=== PATIENT | female | born 2000 | race Caucasian/White ===

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

== ENCOUNTER → 2019-07-21 | Outpatient (REF) | payer OTHER ==
[2019-07-21 21:46] LABS: CHLAMYDIA DNA AMPLIFICATION NEGATIVE (NEGATIVE); GC DNA AMPLIFICATION NEGATIVE (NEGATIVE)
== END ==
LOC: M SFHCLERA 14:12
PROVIDERS: ATTEND Physician Assistant
DX: N94.10 Unspecified dyspareunia (principal); N89.8 Other specified noninflammatory disorders of vagina
CPT/HCPCS: 81002; 81025; 87070; 87077; 87186; 87661; 96372; G0463; J0696

== ENCOUNTER → 2020-09-10 | Outpatient (REF) | payer BC ==
[2020-09-10 17:54] LABS: BASO % 0.5 % (0.0-1.0); EOS # 0.9 10^3/uL (0.0-0.5); EOS % 12.1 % (0.0-3.0); HEMATOCRIT 42.7 % (36.0-47.0); HEMOGLOBIN 13.6 g/dl (12.0-15.5); LYMPH # 2.6 10^3/uL (1.5-5.0); LYMPH % 33.9 % (24.0-44.0); MEAN CORPUSCULAR HEMOGLOBIN 30.6 pg (27.0-33.0); MEAN CORPUSCULAR HGB CONC 31.9 g/dl (32.0-36.5); MONO # 0.5 10^3/uL (0.0-0.8); MONO % 6.7 % (0.0-5.0); NEUTROPHILS # 3.6 10^3/uL (1.5-8.5); NEUTROPHILS % 46.7 % (36.0-66.0); PLATELET COUNT, AUTOMATED 293 10^3/uL (150-450); RED BLOOD COUNT 4.45 10^6/uL (4.00-5.40); WHITE BLOOD COUNT 7.6 10^3/uL (4.0-10.0)
[2020-09-10 18:21] LABS: ALBUMIN 3.7 GM/DL (3.2-5.2); ALT/SGPT 27 U/L (12-78); BILIRUBIN,TOTAL 0.4 MG/DL (0.2-1.0); BLOOD UREA NITROGEN 9 MG/DL (7-18); CARBON DIOXIDE LEVEL 29 MEQ/L (21-32); CHLORIDE LEVEL 106 MEQ/L (98-107); CHOLESTEROL LEVEL 227 MG/DL (<200); CHOLESTEROL RISK RATIO 3.546 (<5); CREATININE FOR GFR 0.74 MG/DL (0.55-1.30); FREE T4 0.99 NG/DL (0.76-1.46); GLOMERULAR FILTRATION RATE > 60.0 (>60); GLUCOSE, FASTING 80 MG/DL (70-100); HDL CHOLESTEROL 64 MG/DL (>40); LDL CHOLESTEROL 134 MG/DL (<100); NON-HDL-C 163 MG/DL; POTASSIUM SERUM 4.5 MEQ/L (3.5-5.1); SODIUM LEVEL 139 MEQ/L (136-145); TRIGLYCERIDES LEVEL 143 MG/DL (<150)
== END ==
LOC: M SFHCPLAZ 14:27
PROVIDERS: ATTEND Nurse Practitioner Family
DX: Z13.228 Encounter for screening for other metabolic disorders (principal); Z13.220 Encounter for screening for lipoid disorders

== ENCOUNTER → 2020-10-09 | Outpatient (CLI) | payer BC ==
--- NOTE | 2020-10-09 14:31 | REPPI ---
INDICATION: R09.89 CHEST CONGESTION. COMPARISON: No comparison chest x-ray. TECHNIQUE: Three views presented... FINDINGS: The lungs are well inflated and free of infiltrate. The pleural angles are sharp. The heart size is normal. Pulmonary vasculature is not increased. No significant bony abnormality is seen. IMPRESSION: Negative chest x-ray. <Electronically signed by Dallas Gary > 10/09/20 [id number]
== END ==
LOC: M PLAIMG 11:54
PROVIDERS: ATTEND Nurse Practitioner Family
DX: R09.89 Other specified symptoms and signs involving the circulatory and respiratory systems (principal)

== ENCOUNTER → 2020-10-11 | Outpatient (REF) | payer BC | LOC: M SFHCWAGY 13:25 | PROVIDERS: ATTEND Nurse Practitioner Family | DX: Z11.3 Encounter for screening for infections with a predominantly sexual mode of transmission (principal) | CPT/HCPCS: 87624; 87661; G0123 ==

== ENCOUNTER → 2020-10-16 | Outpatient (CLI) | payer BC | LOC: M PLALAB 12:12 | PROVIDERS: ATTEND Nurse Practitioner Family | DX: J30.2 Other seasonal allergic rhinitis (principal); H10.45 Other chronic allergic conjunctivitis ==

== ENCOUNTER 2020-11-01 02:12 | Emergency (ER) | payer BC ==
[~2020-11-01] VITALS: Ht 165.1 cm; Wt 79.8 kg
[2020-11-01] MEDS ORDERED: CETI-24 PO (02:16)
--- OUTSIDE RECORDS SUMMARY | 2020-11-01 02:18 | CCD ---
Author Author [facility] Organization [facility] Address Unknown Phone Unavailable Care Team Providers Care Med Peds Name Role Phone Vania Arnold Unavailable PROBLEMS Type Condition ICD9-CM Code NWN80-VG Code Onset Dates Condition S tatus SNOMED Code Notes Problem Dyspareunia in female N94.10 Active 92164178 Problem Allergic rhinitis J30.9 Active 17545957 Problem Other chronic pain G89.29 Active 11441989 ALLERGIES No Known Allergies ENCOUNTERS from 1998 to 2020-09-14 Encounter Location Date Provider Diagnosis [address] [address] Sep, Vania Arnold Allergic rhinitis J30.9 ; Uses oral cont raceptives Z30.41 ; Former smoker Z87.891 ; Cervical cancer screening Z12.4 ; Screening for metabolic disorder Z13.228 ; Screening for lipid disorders Z13.220 and Encounter to establish care Z76.89 IMMUNIZATIONS Vaccine Route Administration Date Status Influenza (6mo & up) Fluzone Unknown May 04, 2017 Oth ers SOCIAL HISTORY Tobacco Use: Social History Observation Description Date Details (start date - stop date) Never Smoker Sex Assigned At : Social History Observation Description Sex Assigned At Unknown Education: Question Answer Notes Level of Education: Not Finished College Language: Question Answer Notes Languages spoken: Chadian Hoahaoism: Question Answer Notes Hoahaoism 08 Jewish Sexual Hx: Question Answer Notes Had sex in the last 12 months (vaginal, oral, or anal)? No LMP: 08/2020 Alcohol Screening: Question Answer Notes Did you have a drink containing alcohol in the past year? Ye s Points 1 Interpretation Negative How many drinks did you have on a typica l day when you were drinking in the past year? 1 or 2 (0 points) How often did you have a drink containing alcohol in t he past year? Monthly or less (1 point) Tobacco Use: Question Answer Notes Are you a: current every day smoker 1/2 ppd Are you a: never smoker REASON FOR REFERRAL No Information VITAL SIGNS Weight 170 lbs Sep, Height 65 in Sep, BMI 28.29 kg/m2 Sep, Heart Rate 88 /min Sep, Respiratory Rate 18 /min Sep, Temperature 98.4 degrees Fahrenheit Sep, Oximetry 98 Sep, Blood pressure systolic 124 mm Hg Sep, Blood pressure diastolic 78 mm Hg Sep, MEDICATIONS Medication SIG (Take, Route, Frequency, Duration) Notes Start Da te End Date Status Larissia 0.1-20 MG-MCG 1 tablet Orally Once a day for 28 day(s) Active Yumi-D 24 Hour Active PROCEDURES No Information RESULTS REASON FOR VISIT to establish MEDICAL (GENERAL) HISTORY Type Description Date Medical History seasonal allergies Surgical History 3 tympanic surgeries on left ear Goals Section No Information Health Concerns No Information MEDICAL EQUIPMENT No Information MENTAL STATUS No Information FUNCTIONAL STATUS No Information ASSESSMENTS Encounter Date Diagnosis Assessment Notes Treatment Notes Treatm ent Clinical Notes Sep, Allergic rhinitis (ICD-10 - J30.9) 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 Sep, Uses oral contraceptives (ICD-10 - Z30.41) establishing with [facility] will defer care Sep, Former smoker (ICD-10 - Z87.891) advised to staff off of it Sep, Cervical cancer screening (ICD-10 - Z12.4) had no prior Sep, Screening for metabolic disorder (ICD-10 - Z13.2 28) screening Sep, Screening for lipid disorders (ICD-10 - Z13.220) screening Sep, Encounter to establish care (ICD-10 - Z76.89) establishing care PLAN OF TREATMENT Medication Medication Name Sig Start Date Stop Date Larissia 0.1-20 MG-MCG 1 tablet Orally Once a day for 28 day(s) Yumi-D 24 Hour Treatment Notes Assessment Notes Clinical Notes Allergic rhinitis referral to allergis t Uses oral contraceptives establishing [facility] care Former smoker advised to staff off of it Cervical cancer screening had no prior Screening for metabolic disorder screeni ng Screening for lipid disorders screening Encounter to establish care establishing care Next Appt Details 1 Year Reason: Provider Name:Vani Mena, 2020-10-11 10:00:00 AM, [facility] [place], [address], Provider Name:Vania Arnold, 09-12 11:00:00 AM, [address] [place], [address], Insurance Providers Payer Name Payer Address Payer Phone Insured Name Patient Relati onship to Insured Coverage Start Date Coverage End Date BCBS OF [employer] [phone] [facility] [id number] YANNA MOURA self
--- OUTSIDE RECORDS SUMMARY | 2020-11-01 02:18 | CCD ---
Author Author [facility] Organization [facility] Address Unknown Phone Unavailable Care Team Providers Care Table Games Manager Name Role Phone Vania Arnold Unavailable PROBLEMS Type Condition ICD9-CM Code SQX22-PS Code Onset Dates Condition S tatus W/U Status Risk SNOMED Code Notes Problem Allergic rhinitis J30.9 Active confirmed 61 110229 Problem Sinusitis J32.9 Active confirmed 83219433 Problem Other chronic pain G89.29 Active confirmed 8 8917525 Problem Dyspareunia in female N94.10 Active confirmed 13741130 ALLERGIES No Known Allergies ENCOUNTERS from 1998 to 2020-10-14 Encounter Location Date Provider Diagnosis [address] [address] Oct, Vania Arnold Chest congestion R09.89 and Sinusitis J3 2.9 IMMUNIZATIONS Vaccine Route Administration Date Status Influenza (6mo & up) Fluzone Unknown May 04, 2017 Oth ers SOCIAL HISTORY Tobacco Use: Social History Observation Description Date Details (start date - stop date) Never Smoker Sex Assigned At : Social History Observation Description Sex Assigned At Unknown Education: Question Answer Notes Level of Education: Not Finished College Language: Question Answer Notes Languages spoken: French Pentecostal: Question Answer Notes Pentecostal 08 [employer]ist Sexual Hx: Question Answer Notes Had sex [...] Use: Question Answer Notes Are you a: never smoker REASON FOR REFERRAL No Information VITAL SIGNS Weight 165 lbs Oct, Height 65 in Oct, BMI 27.45 kg/m2 Oct, Heart Rate 94 /min Oct, Respiratory Rate 16 /min Oct, Temperature 98.8 degrees Fahrenheit Oct, Oximetry 99 Oct, Blood pressure systolic 132 mm Hg Oct, Blood pressure diastolic 74 mm Hg Oct, MEDICATIONS Medication SIG (Take, Route, Frequency, Duration) Notes Start Da te End Date Status Yumi-D 24 Hour Not-Hung ing Flonase Allergy Relief 50 MCG/ACT 1 spray in each nostril Nasall y Once a day Active Zyrtec Allergy 10 MG 1 tablet Orally Once a day for 30 day(s) Active Larissia 0.1-20 MG-MCG 1 tablet Orally Once a day for 28 day(s) Not-Taking Amoxicillin-Pot Clavulanate 875-125 MG 1 tablet Orally every 12 hrs for 10 day(s) Oct, Not-Taking KEM 3-0.02 MG 1 tablet Orally Once a day for 28 day(s) Oct, Active PROCEDURES No Information RESULTS No Results REASON FOR VISIT sinus MEDICAL (GENERAL) HISTORY Type Description Date Medical History seasonal allergies Medical History anxiety Surgical History 3 tympanic surgeries on left ear Goals Section No Information Health Concerns No Information MEDICAL EQUIPMENT No Information MENTAL STATUS No Information FUNCTIONAL STATUS No Information ASSESSMENTS Encounter Date Diagnosis Assessment Notes Treatment Notes Treatm ent Clinical Notes Oct, Chest congestion (ICD-10 - R09.89) obtain chest x-ray rapid Covid test to risk stratify. Oct, Sinusitis (ICD-10 - J32.9) PLAN OF TREATMENT Medication Medication Name Sig Start Date Stop Date KEM 3-0.02 MG 1 tablet Orally Once a day for 28 day(s) Oct, Treatment Notes Assessment Notes Clinical Notes Chest congestion obtain chest x-rayra pid Covid test to risk stratify. Treatment Notes Test Name Order Date Chest X-ray PA and lateral 2020-10-09 Future Test Test Name Order Date SABINA COVID AG (Point of Care) [id number] Next Appt Details Reason: Provider Name:Sarai Saba, 2020-10-25 03:00:00 PM, [address] [place], [address], Provider Name:Vania Clayton, 09-12 11:00:00 AM, [address] [place], [address], Insurance Providers Payer Name Payer Address Payer Phone Insured Name Patient Relati onship to Insured Coverage Start Date Coverage End Date BCBS OF [facility] [phone] [facility] [id number] YANNA PEDRAZA self
--- OUTSIDE RECORDS SUMMARY | 2020-11-01 02:18 | CCD ---
Author Author [facility] Organization [facility] Address Unknown Phone Unavailable Care Team Providers Care Financial Supervisor Name Role Phone Davey NAVARRO Unavailable Unavailable Davey NAVARRO Unavailable Unavailable DESJARLAIS, DREW INFORMATION SYSTEMS AUDIT MANAGER Unavailable Unavailable DESJARLAIS, DREW INFORMATION SYSTEMS AUDIT MANAGER Unavailable Unavailable DESJARLAIS, DREW INFORMATION SYSTEMS AUDIT MANAGER Unavailable Unavailable DESJARLAIS, DREW INFORMATION SYSTEMS AUDIT MANAGER Unavailable Unavailable DESJARLAIS, DREW INFORMATION SYSTEMS AUDIT MANAGER Unavailable Unavailable DESJARLAIS, DREW INFORMATION SYSTEMS AUDIT MANAGER Unavailable Unavailable DESJARLAIS, DREW INFORMATION SYSTEMS AUDIT MANAGER Unavailable Unavailable DESJARLAIS, DREW INFORMATION SYSTEMS AUDIT MANAGER Unavailable Unavailable DESJARLAIS, DREW INFORMATION SYSTEMS AUDIT MANAGER Unavailable Unavailable LETTIERE, A KASH PA Unavailable Unavailable LETTIERE, A KASH PA Unavailable Unavailable LETTIERE, A KASH PA Unavailable Unavailable LETTIERE, A KASH PA Unavailable Unavailable LETTIERE, A KASH PA Unavailable Unavailable LETTIERE, A KASH PA Unavailable Unavailable LETTIERE, A KASH PA Unavailable Unavailable LETTIERE, A KASH PA Unavailable Unavailable LETTIERE, A KASH PA Unavailable Unavailable LETTIERE, A KASH PA Unavailable Unavailable LETTIERE, A KASH PA Unavailable Unavailable LETTIERE, A KASH PA Unavailable Unavailable LETTIERE, A KASH PA Unavailable Unavailable LETTIERE, A KASH PA Unavailable Unavailable LETTIERE, A KASH PA Unavailable Unavailable LETTIERE, A KASH PA Unavailable Unavailable LETTIERE, A KASH PA Unavailable Unavailable LETTIERE, A KASH PA Unavailable Unavailable LETTIERE, A KASH PA Unavailable Unavailable LETTIERE, A KASH PA Unavailable Unavailable LETTIERE, A KASH PA Unavailable Unavailable LETTIERE, A KASH PA Unavailable Unavailable LETTIERE, A KASH PA Unavailable Unavailable LETTIERE, A KASH PA Unavailable Unavailable LETTIERE, A KASH PA Unavailable Unavailable LETTIERE, A KASH PA Unavailable Unavailable LETTIERE, A KASH PA Unavailable Unavailable LETTIERE, A KASH PA Unavailable Unavailable LETTIERE, A KASH PA Unavailable Unavailable Re-disclosure Warning The records that you are about to access may contain information from federally-assisted alcohol or drug abuse programs. If such information is present, then the following federally mandated warning applies: This information has been disclosed to you from records protected by federal confidentiality rules (42 CFR part 2). The federal rules prohibit you from making any further disclosure of this information unless further disclosure is expressly permitted by the written consent of the person to whom it pertains or as otherwise permitted by 42 CFR part 2. A general authorization for the release of medical or other information is NOT sufficient for this purpose. The Federal rules restrict any use of the information to criminally investigate or prosecute any alcohol or drug abuse patient.The records that you are about to access may contain highly sensitive health information, the redisclosure of which is protected by Article 27-F of the [facility] Public Health law. If you continue you may have access to information: Regarding HIV / AIDS; Provided by facilities licensed or operated by the [facility] Office of Mental Health; or Provided by the [facility] Office for People With Developmental Disabilities. If such information is present, then the following [facility] mandated warning applies: This information has been disclosed to you from confidential records which are protected by state law. State law prohibits you from making any further disclosure of this information without the specific written consent of the person to whom it pertains, or as otherwise permitted by law. Any unauthorized further disclosure in violation of state law may result in a fine or mcfp sentence or both. A general authorization for the release of medical or other information is NOT sufficient authorization for further disc losure. Family History Family Member Name Family Member Gender Family Member Status Date o f Status Description Data Source(s) Unknown Unknown Problem MEDENT ([facility], ) Encounters Encounter Providers Location Date Indications Data Source(s ) Outpatient [address] [facility] [place] [id number] 10/11/2020 12:00:00 AM EST eCW1 ([facility]) Outpatient [address] [facility] [place] [address] 10/09/2020 12:00:00 AM EST eCW1 ([facility]) Unknown [address] [facility] [address] [id number] 10/09/2020 12:00:00 AM EST eCW1 ([facility]) Outpatient [address] [facility] [id number] 09/10/2020 12:00:00 AM EST eCW1 ([facility]) Outpatient Attender: KASH shore 04/15/2020 09:40:00 AM [facility] ([facility]) Outpatient Attender: DREW SOARES NP 04/03/2020 01: 00:00 PM [facility] Outpatient Attender: DREW SOARES NP 02/28/2020 09: 02:00 AM [facility] Outpatient Attender: FLORES NAVARRO 02/16/2020 02:00:00 PM [facility] Outpatient Attender: FLORES NAVARRO 01/19/2020 09:00:00 AM [facility] Outpatient Attender: DREW SOARES NP 01/11/2020 11: 40:00 AM [facility] Outpatient Attender: FLORES NAVARRO 12/22/2019 09:01:00 AM [facility] Outpatient Attender: FLORES NAVARRO 12/14/2019 09:41:00 AM [facility] Outpatient Attender: DREW SOARES NP 11/29/2019 11: 40:00 AM [facility] Outpatient Attender: DREW SOARES NP 11/01/2019 11: 39:00 AM [facility] Outpatient Attender: FLORES NAVARRO 10/23/2019 12:44:00 PM [facility] Outpatient Attender: FLORES NAVARRO 09/25/2019 12:43:00 PM [facility] Outpatient Attender: FLORES NAVARRO 09/11/2019 09:57:00 AM [facility] Outpatient Attender: DREW SOARES NP 08/24/2019 02: 31:00 PM [facility] Outpatient Attender: DREW SOARES NP 07/12/2019 09: 06:00 AM [facility] Outpatient Attender: DREW SOARES NP 04/28/2019 12: 47:00 PM [facility] Medications Medication Brand Name Start Date Product Form Dose Route Admi nistrative Instructions Pharmacy Instructions Status Indications Reaction Description Data Source(s) KEM 3-0.02 MG KEM 3-0.02 MG 10/11/2020 12:00:00 AM EST 1.0 {tabl et} active KEM 3-0.02 MG [facility] KEM 3-0.02 MG KEM 3-0.02 MG 10/11/2020 12:00:00 AM EST 1.0 {tabl et} active KEM 3-0.02 MG [facility]) Amoxicillin 875 MG / Clavulanate 125 MG Oral Tablet Amoxicillin-Pot Clavulanate 875-125 MG Amoxicillin-Pot Clavulanate 875-125 MG 10/09/2020 12:00:00 AM ES T 1.0 {tablet} suspended Amoxicillin-Pot C lavulanate 875-125 MG [facility]CW1 [facility]) Amoxicillin 875 MG / Clavulanate 125 MG Oral Tablet Amoxicillin-Pot Clavulanate 875-125 MG Amoxicillin-Pot Clavulanate 875-125 MG 10/09/2020 12:00:00 AM ES T 1.0 {tablet} suspended Amoxicillin-Pot C lavulanate 875-125 MG eCW1 [facility]) Amoxicillin 875 MG / Clavulanate 125 MG Oral Tablet Amoxicillin-Pot Clavulanate 875-125 MG Amoxicillin-Pot Clavulanate 875-125 MG 10/09/2020 12:00:00 AM ES T 1.0 {tablet} active Amoxicillin-Pot Cla vulanate 875-125 MG eCW1 [facility]) Control Pill 04/15/2020 12:00:00 AM EDT active MEDENT ([facility]) Insurance Providers Payer name Policy type / Coverage type Policy ID Covered constitution party ID Covered constitution party's relationship to ng Policy Ng Plan Information [employer] [place] 306/806 [id number] SP [id number] SELF PAY ONLY [id number] SP [id number] [employer] BC[employer] B [id number] S [id number] [place] S [id number] SPO [id number] [place] [place] [id number] O [id number] [facility] HUMANA [id number] U [id number] Self [id number] [place] [place] O [id number] S [id number] [facility] [id number] [id number] [facility] [id number] [id number] [facility] Health Maintenance Organization (HMO) [id number] Family Dependent [id number] [facility] [id number] [facility] [id number] SP [id number] Problems, Conditions, and Diagnoses Code Display Name Description Problem Type Effective Dates Data Source(s) J32.9 Sinusitis Sinusitis Problem 10/09/2020 12:00:00 AM ES T [facility]CW[facility]) J30.9 Allergic rhinitis Allergic rhinitis Problem 09/10/2020 12:00:00 AM EST eCW1 [facility]) G47.00 Insomnia, unspecified INSOMNIA, UNSPECIFIED Diagnosis 04/03/2020 01:00:00 PM [facility] F60.3 Borderline personality disorder BORDERLINE PERSONALITY DISORDER Diagnosis 04/03/2020 01:00:00 PM [facility] F41.1 Generalized anxiety disorder GENERALIZED ANXIETY DISOR SVITLANA Diagnosis 04/03/2020 01:00:00 PM [facility] F60.9 Personality disorder, unspecified PERSONALITY DI SORDER, UNSPECIFIED Diagnosis 02/28/2020 09:02:00 AM [facility] F41.0 Panic disorder [episodic paroxysmal anxi ety] PANIC DISORDER [EPISODIC PAROXYSMAL ANXIETY] Diagnosis 02/28/2020 09:02:00 AM [facility] F33.2 Major depressive disorder, recurrent 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 psychotic features MAJOR DEPRESSV DISORDER, RECURRENT SEVERE W/O PSYC Diagnosis 08/2020 02:00:00 PM [facility] Surgeries/Procedures Procedure Description Date Indications Data Source(s) Therapeutic, Prophylactic Or Diagnostic Injection Subq/Im 04/15/2020 12:00:00 AM EDT [facility] ([facility]) Results ID Date Data Source CBC with Differential 09/10/2020 12:00:00 AM EST eCW1 ([facility]) Name Value Range Interpretation Code Description Data Aurelia rce(s) Supporting Document(s) 4.45 4.00-5.40 eCW1 ([facility]) 7.6 4.0-10.0 eCW1 ([facility]) 13.6 12.0-15.5 eCW1 ([facility]) 42.7 36.0-47.0 eCW1 ([facility]) 31.9 32.0-36.5 eCW1 ([facility]) 96.0 80.0-96.0 eCW1 ([facility]) 30.6 27.0-33.0 eCW1 ([facility]) 6.7 0.0-5.0 eCW1 ([facility]) 293 150-450 eCW1 ([facility]) 12.3 11.5-14.5 eCW1 ([facility]) 46.7 36.0-66.0 eCW1 ([facility]) 33.9 24.0-44.0 eCW1 ([facility]) 0.5 0.0-0.8 eCW1 ([facility]) 0.5 0.0-1.0 eCW1 ([facility]) 3.6 1.5-8.5 eCW1 ([facility]) 12.1 0.0-3.0 eCW1 ([facility]) 2.6 1.5-5.0 eCW1 ([facility]) 0.9 0.0-0.5 eCW1 ([facility]) 0.0 0.0-0.2 eCW1 ([facility]) ID Date Data Source Comprehensive Metabolic Profile (CMP) 09/10/2020 12:00:00 AM EST [facility]) Name Value Range Interpretation Code Description Data Aurelia rce(s) Supporting Document(s) 9 7-18 eCW1 ([facility]) 0.74 0.55-1.30 eCW1 ([facility]) 80 70-100 eCW1 ([facility]) 139 136-145 eCW1 ([facility]) 106 98-107 eCW1 ([facility]) > 60.0 >60 eCW1 ([facility]) 4.5 3.5-5.1 eCW1 ([facility]) 29 21-32 eCW1 ([facility]) 27 12-78 eCW1 ([facility]) 74 45-117 eCW1 ([facility]) 9.0 8.5-10.1 eCW1 ([facility]) 0.4 0.2-1.0 eCW1 ([facility]) 23 7-37 eCW1 ([facility]) 7.0 6.4-8.2 eCW1 ([facility]) 3.7 3.2-5.2 eCW1 ([facility]) 1.1 1.2-2.2 eCW1 ([facility]) ID Date Data Source FREE T4 & TSH PANEL 09/10/2020 12:00:00 AM EST eCW1 ([facility]) Name Value Range Interpretation Code Description Data Aurelia rce(s) Supporting Document(s) 1.480 0.358-3.740 eCW1 ([facility]) 0.99 0.76-1.46 eCW1 ([facility]) ID Date Data Source LIPID PANEL (CARDIAC RISK) 09/10/2020 12:00:00 AM EST [facility] ( [facility] Name Value Range Interpretation Code Description Data Aurelia rce(s) Supporting Document(s) Cholesterol in HDL [Moles/volume] in Serum or Plasma 64 >40 eCW1 ([facility]) Triglyceride [Mass/volume] in Serum or Plasma by calculation 143 <150 eCW1 [facility]) Cholesterol [Moles/volume] in Serum or Plasma 227 <200 eCW1 ([facility]) 3.546 <5 eCW1 ([facility]) Cholesterol in LDL [Mass/volume] in Serum or Plasma by calculation 13 4 <100 eCW1 [facility]) 163 eCW1 ([facility]) ID Date Data Source [id number] 04/15/2020 12:00:00 AM EDT [facility] ERICH Coffman Patient Name: SYEDA MOUARY45Christopher Jones [employer] [facility] 2000[facility] [address] Date of Exam: 04/15/2020PH#: Fax: [phone] EXAM: LUMBSACRAL SPINE (2 OR 3 VIEWS) XRAYCLINICAL INFORMATION: Back pain.Five views.Multiple views of the lumbosacral spine show no acute fracture,dislocation, or subluxation. The intervertebral disc spaces are symmetricand well maintained. There is no spondylolysis or spondylolisthesis. Thepedicles are intact bilaterally and there is no destructive osseous lesion. IMPRESSION:Essentially unremarkable lumbosacral spine series.LISETTE Dixon/Dawna you for referring YANNA MOURA to our office. Electronically Signed - THANH CAMACHO DO 04/16/20 14:23 Name Value Range Interpretation Code Description Data Aurelia rce(s) Supporting Document(s) ID Date Data Source [id number] 04/15/2020 12:00:00 AM EDT [facility] ERICH Coffman Patient Name: SYEDA [id number] [employer] Date of : 2000[place] [address] Date of Exam: 04/15/2020PH#: Fax: [phone] EXAM: KNEE RIGHT (COMPLETE) X-RAYCLINICAL INFORMATION: Pain.Five views.The compartments are symmetric and well maintained. There is no acutefracture or destructive osseous lesion.Thanh Camacho, LISETTE/Sandra you for referring YANNA MOURA to our office. Electronically Signed - THANH CAMACHO DO 04/16/20 14:23 Name Value Range Interpretation Code Description Data Aurelia rce(s) Supporting Document(s) ID Date Data Source [id number] 04/02/2020 12:00:00 AM EDT [facility] Name Value Range Interpretation Code Description Data Aurelia rce(s) Supporting Document(s) 2019-nCoV RNA XXX JEET+probe-Imp [facility] This lab was ordered by [facility] and reported by [facility]. Procedure Social History Code Duration Value Status Description Data Source(s ) Smoking 10/11/2020 12:00:00 AM EST Never Smoker completed Never S moker [facility]) Smoking 10/11/2020 12:00:00 AM EST Never Smoker completed Never S moker eCW1 ([facility]) Smoking 10/09/2020 12:00:00 AM EST Never Smoker completed Never S moker eCW1 ([facility]) Smoking 09/10/2020 12:00:00 AM EST Never Smoker completed Never S moker eCW1 ([facility]) Smoking 04/15/2020 12:00:00 AM EDT Patient has never smoked co mpleted Patient has never smoked MEDENT ([facility]) Vital Signs ID Date Data Source UNK Name Value Range Interpretation Code Description Data Source(s) Diastolic blood pressure 79 mm[Hg] 79 mm[Hg] [facility] Systolic blood pressure 120 mm[Hg] 120 mm[Hg] e CW1 ([facility]) Body mass index (BMI) [Ratio] 27.29 kg/m2 27.29 kg/m2 W1 ([facility]) Body height 65 [in_i] 65 [in_i] eCW1 ([facility]) Body weight 74.39 kg 74.39 kg eCW1 ([facility]) Body weight 164 [lb_av] 164 [lb_av] eCW1 ([facility]) Diastolic blood pressure 74 mm[Hg] 74 mm[Hg] eCW1 [facility]) Systolic blood pressure 132 mm[Hg] 132 mm[Hg] e CW1 ([facility]) Body temperature 98.8 [degF] 98.8 [degF] eCW1 ( [facility]) Respiratory rate 16 /min 16 /min eCW1 ([facility]) Heart rate 94 /min 94 /min eCW1 ([facility]) Body mass index (BMI) [Ratio] 27.45 kg/m2 27.45 kg/m2 eCW1 [facility]) Body height 65 [in_i] 65 [in_i] eCW1 ([facility]) Body weight 165 [lb_av] 165 [lb_av] eCW1 ([facility]) Body surface area Derived from formula 1.79 m2 1.79 m2 [facility] ([facility], ) Body weight 71.669 kg 71.669 kg [facility] ([facility], ) [place] body weight 125 [lb_av] 125 [lb_av] MEDEN T ([facility], ) Body mass index (BMI) [Ratio] 26.3 kg/m2 26.3 k g/m2 [facility] ([facility], ) Body weight 158.00 [lb_av] 158.00 [lb_av] MEDEN T ([facility], ) Body height 65 [in_i] 65 [in_i] [facility] 5'5" Body weight 170 [lb_av] 170 [lb_av] eCW1 ([facility]) Body height 65 [in_i] 65 [in_i] eCW1 ([facility]) Body mass index (BMI) [Ratio] 28.29 kg/m2 28.29 kg/m2 W1 ([facility]) Heart rate 88 /min 88 /min eCW1 ([facility]) Respiratory rate 18 /min 18 /min eCW1 ([facility]) Body temperature 98.4 [degF] 98.4 [degF] eCW1 ( [facility]) Systolic blood pressure 124 mm[Hg] 124 mm[Hg] e CW1 ([facility]) Diastolic blood pressure 78 mm[Hg] 78 mm[Hg] eCW1 ([facility]) Body mass index (BMI) [Ratio] 26.6 kg/m2 26.6 k g/m2 MEDENT ([facility]) Body height 65 [in_i] 65 [in_i] MEDENT ([facility]) 5'5" Body weight 160.00 [lb_av] 160.00 [lb_av] MEDEN T ([facility]) Body temperature 98.5 [degF] 98.5 [degF] MEDENT ([facility]) Oxygen saturation in Arterial blood by Pulse oximetry 98 % 98 % [facility] ([facility]) Respiratory rate 12 /min 12 /min [facility] ( [facility]) Heart rate 76 /min 76 /min MEDENT ([facility]) Diastolic blood pressure 96 mm[Hg] 96 mm[Hg] MEDENT ([facility]) Systolic blood pressure 136 mm[Hg] 136 mm[Hg] M EDENT ([facility]) Body surface area Derived from formula 1.78 m2 1.78 m2 [facility] ([facility] Body weight 70.308 kg 70.308 kg [facility] ([facility]) [place] body weight 125 [lb_av] 125 [lb_av] MEDEN T ([facility]) Body mass index (BMI) [Ratio] 25.8 kg/m2 25.8 k g/m2 [facility] ([facility]) Body weight 155.00 [lb_av] 155.00 [lb_av] MEDEN T ([facility]) Body height 65 [in_i] 65 [in_i] [facility] ([facility]) 5'5" Patient Treatment Plan of Care Planned Activity Planned Date Details Description Data Source (s) KEM 3-0.02 MG 10/11/2020 12:00:00 AM EST [facility] KEM 3-0.02 MG 10/11/2020 12:00:00 AM EST eCW1 ([facility]) Amoxicillin 875 MG / Clavulanate 125 MG Oral Tablet 10/09/19 12:00:00 AM EST eCW1 ([facility])
--- OUTSIDE RECORDS SUMMARY | 2020-11-01 02:18 | CCD | Continuity of Care Document ---
Author Author Patricia VELAZQUEZ MD Organization Unknown Address [address] [address] Phone [phone] Care Team Providers Care Software Release Engineer Name Role Phone Caity Yuan AUTM [phone] [facility] AUTM [phone] AUTM Unavailable Tish Arnold AUTM [phone] Problems Description No Information Available Social History Type Date Description Comments Sex Unknown Smokeless Tobacco Never Used Smokeless Tobacco ETOH Use Denies alcohol use Recreational Drug Use Denies Drug Use Tobacco Use Start: Unknown End: Unknown Patient is a former smoker Allergies, Adverse Reactions, Alerts Description No Known Drug Allergies Medications Active Medications SIG Qnty Indications Ordering Provide r Date Yumi Allergy 180mg Tablets 1 by mouth every day Unknown Flonase Allergy Relief 50mcg/Act Suspension 2 sprays per nostril daily after saline rinse 9.900ml Charlie Velazquez MD Immunizations Description No Information Available Vital Signs Date Vital Result Comment 10/02/2020 2:01pm Height 65 inches 5'5" Weight 158.00 lb BMI (Body Mass Index) 26.3 kg/m2 [place] Body Weight 125 lb Weight 71.669 kg BSA (Body Surface Area) 1.79 m2 01/15/2020 1:07pm Height 65 inches 5'5" Weight 155.00 lb BMI (Body Mass Index) 25.8 kg/m2 [place] [facility] Weight 125 lb Weight 70.308 kg BSA (Body Surface Area) 1.78 m2 Results Description No Information Available Procedures Description No Information Available Medical Devices Description No Information Available Encounters Description No Information Available Assessments Date Code Description Provider 10/02/2020 H65.492 Other chronic nonsuppurative dale tis media, left ear Charlie Velazquez MD 10/02/2020 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
--- OUTSIDE RECORDS SUMMARY | 2020-11-01 02:18 | CCD ---
Author Author [facility] Organization [facility] Address Unknown Phone Unavailable Care Team Providers Care Sausage Cutter Name Role Phone Vania Arnold Unavailable PROBLEMS Type Condition ICD9-CM Code [id number] Code Onset Dates Condition S tatus W/U Status Risk SNOMED Code Notes Problem Allergic rhinitis J30.9 Active confirmed 61 918438 Problem Sinusitis J32.9 Active confirmed 00263591 Problem Other chronic pain G89.29 Active confirmed 8 0252958 Problem Dyspareunia in female N94.10 Active confirmed 21554539 ALLERGIES No Known Allergies ENCOUNTERS from 1998 to 2020-10-10 Encounter Location Date Provider Diagnosis [address] [address] Oct, Vania Caoharesh IMMUNIZATIONS Vaccine Route Administration Date Status Influenza (6mo & up) Fluzone Unknown May 04, 2017 Oth ers SOCIAL HISTORY Tobacco Use: Social History Observation Description Date Details (start date - stop date) Never Smoker Sex Assigned At : Social History Observation Description Sex Assigned At Unknown Education: Question Answer Notes Level of Education: Not Finished College Language: Question Answer Notes Languages spoken: Niuean Church: Question Answer Notes Church 08 R[employer] Sexual Hx: Question Answer Notes Had sex [...] REASON FOR REFERRAL No Information VITAL SIGNS No information MEDICATIONS Medication SIG (Take, Route, Frequency, Duration) Notes Start Da te End Date Status Amoxicillin-Pot Clavulanate 875-125 MG 1 tablet Orally every 12 hrs for 10 day(s) Oct, Active Larissia 0.1-20 MG-MCG 1 tablet Orally Once a day for 28 day(s) Not-Taking Yumi-D 24 Hour Active PROCEDURES No Information RESULTS No Results REASON FOR VISIT sinus MEDICAL (GENERAL) HISTORY Type Description Date Medical History seasonal allergies Surgical History 3 tympanic surgeries on left ear Goals Section No Information Health Concerns No Information MEDICAL EQUIPMENT No Information MENTAL STATUS No Information FUNCTIONAL STATUS No Information ASSESSMENTS No Information PLAN OF TREATMENT Medication Medication Name Sig Start Date Stop Date Amoxicillin-Pot Clavulanate 875-125 MG 1 tablet Orally every 12 hrs for 10 day(s) Oct, Next Appt Details Provider Name:Vani Mena, 2020-10-11 10:00:00 AM, [address] [place] [address], [id number], Provider Name:Vania Arnold, 09-12 11:00:00 AM, [address] [place] [address], [id number], Insurance Providers Payer Name Payer Address Payer Phone Insured Name Patient Relati onship to Insured Coverage Start Date Coverage End Date BC[facility] OF [facility] [phone] [facility] [id number] YANNA PEDRAZA self
--- OUTSIDE RECORDS SUMMARY | 2020-11-01 02:18 | CCD ---
Author Author [facility] Organization [facility] Address Unknown Phone Unavailable Care Team Providers Care Agricultural Researcher Name Role Phone Vani Mena Unavailable PROBLEMS Type Condition ICD9-CM Code [id number] Code Onset Dates Condition S tatus W/U Status Risk SNOMED Code Notes Problem Allergic rhinitis J30.9 Active confirmed 61 098382 Problem Sinusitis J32.9 Active confirmed [id number] Problem Other chronic pain G89.29 Active confirmed 8 0250913 Problem Dyspareunia in female N94.10 Active confirmed [id number] ALLERGIES No Known Allergies ENCOUNTERS from 1998 to 2020-10-16 Encounter Location Date Provider Diagnosis [facility] [address] [place] [id number] Oct, Vani Mena Encounter for gyneco logical examination (general) (routine) without abnormal findings Z01.419 ; Encounter for other screening for malignant neoplasm of breast Z12.39 ; Encounter for screening for malignant neoplasm of cervix Z12.4 ; Encounter for screening for infections with a predominantly sexual mode of transmission Z11.3 ; Yeast vaginitis B37.3 and Encounter for initial prescription of contraceptive pills Z30.011 IMMUNIZATIONS Vaccine Route Administration Date Status Influenza (6mo & up) Fluzone Unknown May 04, 2017 Oth ers SOCIAL HISTORY Tobacco Use: Social History Observation Description Date Details (start date - stop date) Never Smoker Sex Assigned At : Social History Observation Description Sex Assigned At Unknown Education: Question Answer Notes Level of Education: Not Finished College Language: Question Answer Notes Languages spoken: Luxembourger Hoahaoism: Question Answer Notes Hoahaoism 08 [employer] Sexual Hx: Question Answer Notes Had sex [...] FOR REFERRAL No Information VITAL SIGNS Weight 164 lbs Oct, Weight-kg 74.39 kg Oct, Height 65 in Oct, BMI 27.29 kg/m2 Oct, Blood pressure systolic 120 mm Hg Oct, Blood pressure diastolic 79 mm Hg Oct, MEDICATIONS Medication SIG (Take, [...] Information RESULTS No Results REASON FOR VISIT TO GET EST MEDICAL (GENERAL) HISTORY Type Description Date Medical History seasonal allergies Medical History anxiety Surgical History 3 tympanic surgeries on left ear Goals Section No Information Health Concerns No Information MEDICAL EQUIPMENT No Information MENTAL STATUS No Information FUNCTIONAL STATUS No Information ASSESSMENTS Encounter Date Diagnosis Assessment Notes Treatment Notes Treatm ent Clinical Notes Oct, Encounter for gynecological examination (general) (routine) without abnormal findings (ICD-10 - Z01.419) Oct, Encounter for other screenin g for malignant neoplasm of breast (ICD-10 - Z12.39) Oct, Encounter for screening for malignant neoplasm of cervix (ICD-10 - Z12.4) Oct, Encounter for screening for infections with a predominantly sexual mode of transmission (ICD-10 - Z11.3) Oct, Yeast vaginitis (ICD-10 - B37.3) HAs monistat at home to use Oct, Encounter for initial prescr iption of contraceptive pills (ICD-10 - Z30.011) Start OCP now and use condom as backup every time until IUD inserted.Side effects and usage reviewed Oct, Other Desires IUD ,pr efers paraguard ,info given on Kyleena and paraguard. PLAN OF TREATMENT Medication Medication Name Sig Start Date Stop Date KEM 3-0.02 MG 1 tablet Orally Once a day for 28 day(s) Oct, Treatment Notes Assessment Notes Clinical Notes Yeast vaginitis HAs monistat at home to use Encounter for initial prescription of contraceptive pills Start OCP now and use condom as backup every time until IUD inserted.Side effects and usage reviewed Treatment Notes Test Name Order Date PAP REQUEST FOR SERVICE 2020-10-11 CHLAMYDIA, GC & TRICH AMP 2020-10-11 Next Appt Details IUD Reason: Provider Name:Sarai Saba, 2020-10-25 03:00:00 PM, [address] [place], [phone], Provider Name:Vania Arnold, 09-12 11:00:00 AM, [address] [place], [phone], Insurance Providers Payer Name Payer Address Payer Phone Insured Name Patient Relati onship to Insured Coverage Start Date Coverage End Date BCBS OF [facility] [phone] [facility] [id number] YANNA PEDRAZA self
[2020-11-01] MEDS ORDERED: NS 1,000 ML IV ONE (02:35)
[2020-11-01 02:56] LABS: BASO # 0.1 10^3/uL (0.0-0.2); BASO % 0.5 % (0.0-1.0); EOS # 0.4 10^3/uL (0.0-0.5); EOS % 3.1 % (0.0-3.0); HEMATOCRIT 37.7 % (36.0-47.0); HEMOGLOBIN 12.7 g/dl (12.0-15.5); LYMPH # 3.1 10^3/uL (1.5-5.0); LYMPH % 27.2 % (24.0-44.0); MEAN CORPUSCULAR HEMOGLOBIN 30.8 pg (27.0-33.0); MEAN CORPUSCULAR HGB CONC 33.7 g/dl (32.0-36.5); MEAN CORPUSCULAR VOLUME 91.5 fl (80.0-96.0); MONO # 0.9 10^3/uL (0.0-0.8); MONO % 7.4 % (2.0-8.0); NEUTROPHILS # 7.1 10^3/uL (1.5-8.5); NEUTROPHILS % 61.5 % (36.0-66.0); PLATELET COUNT, AUTOMATED 310 10^3/uL (150-450); RED BLOOD COUNT 4.12 10^6/uL (4.00-5.40); WHITE BLOOD COUNT 11.5 10^3/uL (4.0-10.0)
[2020-11-01] MEDS ORDERED: NS 1,390 ML in IV 1 EA IV ONE (03:05)
[2020-11-01 03:08] LABS: INR 1.02; PROTHROMBIN TIME 13.6 SECONDS (12.5-14.3)
[2020-11-01 03:09] LABS: PARTIAL THROMBOPLASTIN TIME 24.1 SECONDS (24.2-38.5)
[2020-11-01 03:40] LABS: ALBUMIN 3.9 GM/DL (3.2-5.2); ALT/SGPT 20 U/L (12-78); BILIRUBIN,DIRECT 0.2 MG/DL (0.0-0.2); BILIRUBIN,TOTAL 0.7 MG/DL (0.2-1.0); BLOOD UREA NITROGEN 6 MG/DL (7-18); CALCIUM LEVEL 9.2 MG/DL (8.5-10.1); CARBON DIOXIDE LEVEL 24 MEQ/L (21-32); CHLORIDE LEVEL 104 MEQ/L (98-107); CREATININE FOR GFR 0.91 MG/DL (0.55-1.30); GLOMERULAR FILTRATION RATE > 60.0 (>60); GLUCOSE, FASTING 103 MG/DL (70-100); HCG, SERUM QUANTITATIVE 53764 MIU/ML; LIPASE 82 U/L (73-393); POTASSIUM SERUM 3.8 MEQ/L (3.5-5.1); SODIUM LEVEL 137 MEQ/L (136-145)
--- NOTE | 2020-11-01 04:31 | REPVR ---
PROCEDURE INFORMATION: Exam: US First Trimester, Transabdominal Exam date and time: 11/01/2020 3:34 AM Age: 20 years old Clinical indication: Lmp or gestational age (in weeks): 09/17/2020; Other: Vaginal bleeding; ; Patient HX: [facility] was misscarriaging and was given meds to speed up process for per patient, patient states took 2nd pill around 2pm and severe bleeding and clotting started around 9pm TECHNIQUE: Imaging protocol: Real-time transabdominal obstetrical ultrasound of the maternal pelvis and a first trimester , less than 14 weeks 0 days, with image documentation. COMPARISON: No relevant prior studies available. FINDINGS: GESTATION: Gestation: There is no intrauterine gestational sac. Embryonic/ heart rate: Sought but not present. Amniotic fluid: Sought but not present. MATERNAL: Uterus: The uterus is anteverted and measures 10.6 x 4.3 x 4.7 cm. The endometrium appears irregular but measures within normal thickness at 7 mm. There is hyperemia of the endometrium on color Doppler imaging. There is hypoechoic fluid in the endometrial canal. Cervix: There is fluid in the endocervical canal appear Right adnexa: The right ovary appears unremarkable and measures 1.4 x 2.9 x 1.4 cm. Normal blood flow is seen on color and pulsed Doppler imaging. Left adnexa: The left ovary appears unremarkable and measures 3.0 x 2.7 x 1.6 is. Normal blood flow is seen on color and pulsed Doppler imaging. Intraperitoneal space: There is no fluid in the cul-de-sac. IMPRESSION: 1. No gestational sac identified. According to history given by the patient, a prior ultrasound had shown a gestational sac and that pills have been taken. 2. Complex fluid consistent with blood products in the endometrial canal and endocervical canal. The endometrium appears irregular and hyperemic but not significantly thickened. Electronically signed by: Sarai Miles On 11/01/2020 04:32:11 AM
--- OUTSIDE RECORDS SUMMARY | 2020-11-01 05:45 | CCD ---
Author Author [facility] Organization [facility] Address Unknown Phone Unavailable Care Team Providers Care Rda Name Role Phone Davey NAVARRO Unavailable Unavailable Davey NAVARRO Unavailable Unavailable DESJARLAIS, DREW OPTIONS TRADER Unavailable Unavailable DESJARLAIS, DREW OPTIONS TRADER Unavailable Unavailable DESJARLAIS, DREW OPTIONS TRADER Unavailable Unavailable DESJARLAIS, DREW OPTIONS TRADER Unavailable Unavailable DESJARLAIS, DREW OPTIONS TRADER Unavailable Unavailable DESJARLAIS, DREW OPTIONS TRADER Unavailable Unavailable DESJARLAIS, DREW OPTIONS TRADER Unavailable Unavailable DESJARLAIS, DREW OPTIONS TRADER Unavailable Unavailable DESJARLAIS, DREW OPTIONS TRADER Unavailable Unavailable LETTIERE, A KASH PA Unavailable [...] is protected by Article 27-F of the [facility] Public Health law. If you continue you may have access to information: Regarding HIV / AIDS; Provided by facilities licensed or operated by the [facility] Office of Mental Health; or Provided by the [facility] Office for People With Developmental Disabilities. If such information is present, then the following [facility] mandated warning applies: This information has [...] law may result in a fine or assisted sentence or both. A general authorization for the release of medical or other information is NOT sufficient authorization for further disc losure. Family History Family Member Name Family Member Gender Family Member Status Date o f Status Description Data Source(s) Unknown Unknown Problem MEDENT ([facility], ) Encounters Encounter Providers Location Date Indications Data Source(s ) Outpatient [address] [facility] [place] [id number] 10/11/2020 12:00:00 AM EST eCW1 ([facility]) Outpatient [address] [facility] [address] [id number] 10/09/2020 12:00:00 AM EST eCW1 ([facility]) Unknown [address] [facility] [place] [id number] 10/09/2020 12:00:00 AM EST eCW1 ([facility]) Outpatient [address] [facility] [id number] 09/10/2020 12:00:00 AM EST eCW1 ([facility]) Outpatient Attender: KASH shore 04/15/2020 09:40:00 AM [facility]) Outpatient Attender: DREW SOARES NP 04/03/2020 01: 00:00 PM [facility] Outpatient Attender: DREW SOARES NP 02/28/2020 09: 02:00 AM [facility] Outpatient Attender: FLORES NAVARRO 02/16/2020 02:00:00 PM [facility] Outpatient Attender: FLORES NAVARRO 01/19/2020 09:00:00 AM [facility] Outpatient Attender: DREW SOARES NP 01/11/2020 11: 40:00 AM [facility] Outpatient Attender: FLORES NAVARRO 12/22/2019 09:01:00 AM [facility] Outpatient Attender: FLORES NAVARRO 12/14/2019 09:41:00 AM [facility] Outpatient Attender: DREW SOARES NP 11/29/2019 11: 40:00 AM [facility] Outpatient Attender: DREW SOARES NP 11/01/2019 11: 39:00 AM [facility] Outpatient Attender: FLORES NAVARRO 10/23/2019 12:44:00 PM [facility] Outpatient Attender: FLORES NAVARRO 09/25/2019 12:43:00 PM [facility] Outpatient Attender: FLORES NAVARRO 09/11/2019 09:57:00 AM [facility] Outpatient Attender: DREW SOARES NP 08/24/2019 02: 31:00 PM [facility] Outpatient Attender: DREW SOARES NP 07/12/2019 09: 06:00 AM [facility] Outpatient Attender: DREW SOARES NP 04/28/2019 12: 47:00 PM [facility] Medications Medication Brand Name Start Date Product Form Dose Route Admi nistrative Instructions Pharmacy Instructions Status Indications Reaction Description Data Source(s) KEM 3-0.02 MG KEM 3-0.02 MG 10/11/2020 12:00:00 AM EST 1.0 {tabl et} active KEM 3-0.02 MG eCW1 ([facility]) KEM 3-0.02 MG KEM 3-0.02 MG 10/11/2020 12:00:00 AM EST 1.0 {tabl et} active KEM 3-0.02 MG eCW1 ([facility]) Amoxicillin 875 MG / Clavulanate 125 MG Oral Tablet Amoxicillin-Pot Clavulanate 875-125 MG Amoxicillin-Pot Clavulanate 875-125 MG 10/09/2020 12:00:00 AM ES T 1.0 {tablet} suspended Amoxicillin-Pot C lavulanate 875-125 MG eCW1 ([facility]) Amoxicillin 875 MG / Clavulanate 125 MG Oral Tablet Amoxicillin-Pot Clavulanate 875-125 MG Amoxicillin-Pot Clavulanate 875-125 MG 10/09/2020 12:00:00 AM ES T 1.0 {tablet} suspended Amoxicillin-Pot C lavulanate 875-125 MG eCW1 ([facility]) Amoxicillin 875 MG / Clavulanate 125 MG Oral Tablet Amoxicillin-Pot Clavulanate 875-125 MG Amoxicillin-Pot Clavulanate 875-125 MG 10/09/2020 12:00:00 AM ES T 1.0 {tablet} active Amoxicillin-Pot Cla vulanate 875-125 MG eCW1 ([facility]) Control Pill 04/15/2020 12:00:00 AM EDT active MEDENT ([facility], [facility]) Insurance Providers Payer name Policy type / Coverage type Policy ID Covered libertarian ID Covered libertarian's relationship to ng Policy Ng Plan Information [employer] [place] 306/806 [id number] SP [id number] SELF PAY ONLY [id number] SP [id number] [employer] B [id number] S [id number] [place] S [id number] SPO [id number] [place] [place] [id number] O [id number] [facility] HUMANA [id number] U [id number] Self [id number] [place] O [id number] S [id number] [facility] [id number] [id number] [facility] [id number] HU2 [id number] [facility] Health Maintenance Organization (HMO) [id number] Family Dependent [id number] [facility] [id number] HU2 [id number] [facility] [id number] SP [id number] Problems, Conditions, and Diagnoses Code Display Name Description Problem Type Effective Dates Data Source(s) J32.9 Sinusitis Sinusitis Problem 10/09/2020 12:00:00 AM ES T eCW1 ([facility]) J30.9 Allergic rhinitis Allergic rhinitis Problem 09/10/2020 12:00:00 AM EST eCW1 ([facility]) G47.00 Insomnia, unspecified INSOMNIA, UNSPECIFIED Diagnosis 04/03/2020 01:00:00 PM [facility] F60.3 Borderline personality disorder BORDERLINE PERSONALITY DISORDER Diagnosis 04/03/2020 01:00:00 PM [facility] F41.1 Generalized anxiety disorder GENERALIZED ANXIETY DISOR SVITLANA Diagnosis 04/03/2020 01:00:00 PM [facility] F60.9 Personality disorder, unspecified PERSONALITY DI SORDER, UNSPECIFIED Diagnosis 02/28/2020 09:02:00 AM [facility] F41.0 Panic disorder [episodic paroxysmal anxi ety] PANIC DISORDER [EPISODIC PAROXYSMAL ANXIETY] Diagnosis 02/28/2020 09:02:[address] [facility] F33.2 Major depressive disorder, recurrent 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 psychotic features MAJOR DEPRESSV DISORDER, RECURRENT SEVERE W/O PSYC Diagnosis 08/2020 02:00:00 PM [facility] Surgeries/Procedures Procedure Description Date Indications Data Source(s) Therapeutic, Prophylactic Or Diagnostic Injection Subq/Im 04/15/2020 12:00:00 AM EDT MED[facility] ([facility]) Results ID Date Data Source CBC with Differential 09/10/2020 12:00:00 AM EST eCW1 ([facility]) Name Value Range Interpretation Code Description Data Aurelia rce(s) Supporting Document(s) 4.45 4.00-5.40 eCW1 ([facility]) 7.6 4.0-10.0 eCW1 ([facility]) 13.6 12.0-15.5 eCW1 ([facility]) 42.7 36.0-47.0 eCW1 ([facility]) 31.9 32.0-36.5 eCW1 ([facility]) 96.0 80.0-96.0 eCW1 ([facility]) 30.6 27.0-33.0 eCW1 ([facility]) 6.7 0.0-5.0 eCW1 ([facility]) 293 150-450 eCW1 ([facility]) 12.3 11.5-14.5 eCW1 ([facility]) 46.7 36.0-66.0 eCW1 ([facility]) 33.9 24.0-44.0 eCW1 ([facility]) 0.5 0.0-0.8 eCW1 ([facility]) 0.5 0.0-1.0 eCW1 ([facility]) 3.6 1.5-8.5 eCW1 ([facility]) 12.1 0.0-3.0 eCW1 ([facility]) 2.6 1.5-5.0 eCW1 ([facility]) 0.9 0.0-0.5 eCW1 ([facility]) 0.0 0.0-0.2 eCW1 ([facility]) ID Date Data Source Comprehensive Metabolic Profile (CMP) 09/10/2020 12:00:00 AM EST eCW1 ([facility]) Name Value Range Interpretation Code Description Data Aurelia rce(s) Supporting Document(s) 9 7-18 eCW1 ([facility]) 0.74 0.55-1.30 eCW1 ([facility]) 80 70-100 eCW1 ([facility]) 139 136-145 eCW1 ([facility]) 106 98-107 eCW1 ([facility]) > 60.0 >60 eCW1 ([facility]) 4.5 3.5-5.1 eCW1 ([facility]) 29 21-32 eCW1 ([facility]) 27 12-78 eCW1 ([facility]) 74 45-117 eCW1 ([facility]) 9.0 8.5-10.1 eCW1 ([facility]) 0.4 0.2-1.0 eCW1 ([facility]) 23 7-37 eCW1 ([facility]) 7.0 6.4-8.2 eCW1 ([facility]) 3.7 3.2-5.2 eCW1 ([facility]) 1.1 1.2-2.2 eCW1 ([facility]) ID Date Data Source FREE T4 & TSH PANEL 09/10/2020 12:00:00 AM EST eCW1 ([facility]) Name Value Range Interpretation Code Description Data Aurelia rce(s) Supporting Document(s) 1.480 0.358-3.740 eCW1 ([facility]) 0.99 0.76-1.46 eCW1 ([facility]) ID Date Data Source LIPID PANEL (CARDIAC RISK) 09/10/2020 12:00:00 AM EST eCW1 ( [facility]) Name Value Range Interpretation Code Description Data Aurelia rce(s) Supporting Document(s) Cholesterol in HDL [Moles/volume] in Serum or Plasma 64 >40 eCW1 ([facility]) Triglyceride [Mass/volume] in Serum or Plasma by calculation 143 <150 eCW1 ([facility]) Cholesterol [Moles/volume] in Serum or Plasma 227 <200 eCW1 ([facility]) 3.546 <5 eCW1 ([facility]) Cholesterol in LDL [Mass/volume] in Serum or Plasma by calculation 13 4 <100 eCW1 ([facility]) 163 eCW1 ([facility]) ID Date Data Source [id number] 04/15/2020 12:00:00 AM EDT [facility] ERICH Coffman Patient Name: SYEDA MOURAY45Christopher [facility] [employer] [facility] 2000[facility] [address] Date of Exam: 04/15/2020PH#: Fax: [phone] EXAM: [...] rce(s) Supporting Document(s) ID Date Data Source [id number] 04/15/2020 12:00:00 AM EDT [facility] ERICH Coffman Patient Name: SYEDA MOURAY89 APR Date of : 2000[place] [address] Date of Exam: 04/15/2020PH#: Fax: [phone] EXAM: KNEE RIGHT (COMPLETE) X-RAYCLINICAL INFORMATION: Pain.Five views.The compartments are symmetric and well maintained. There is no acutefracture or destructive osseous lesion.Thanh Camacho, LISETTE/Sandra you for referring YANNA MOURA to our office. Electronically Signed - THANH CAMACHO DO 04/16/20 14:23 Name Value Range Interpretation Code Description Data Aurelia rce(s) Supporting Document(s) ID Date Data Source [id number] 04/02/2020 12:00:00 AM EDT [facility] Name Value Range Interpretation Code Description Data Aurelia rce(s) Supporting Document(s) 2019-nCoV RNA XXX JEET+probe-Imp [facility] This lab was ordered by [facility] and reported by [facility]. Procedure Social History Code Duration Value Status Description Data Source(s ) Smoking 10/11/2020 12:00:00 AM EST Never Smoker completed Never S moker eCW1 ([facility]) Smoking 10/11/2020 12:00:00 AM EST Never Smoker completed Never S moker eCW1 ([facility]) Smoking 10/09/2020 12:00:00 AM EST Never Smoker completed Never S moker eCW1 ([facility]) Smoking 09/10/2020 12:00:00 AM EST Never Smoker completed Never S moker eCW1 ([facility]) Smoking 04/15/2020 12:00:00 AM EDT Patient has never smoked co mpleted Patient has never smoked MEDENT ([facility]) Vital Signs ID Date Data Source UNK Name Value Range Interpretation Code Description Data Source(s) Diastolic blood pressure 79 mm[Hg] 79 mm[Hg] eCW1 ([facility]) Systolic blood pressure 120 mm[Hg] 120 mm[Hg] e CW1 ([facility]) Body mass index (BMI) [Ratio] 27.29 kg/m2 27.29 kg/m2 W1 ([facility]) Body height 65 [in_i] 65 [in_i] eCW1 ([facility]) Body weight 74.39 kg 74.39 kg eCW1 ([facility]) Body weight 164 [lb_av] 164 [lb_av] eCW1 ([facility]) Diastolic blood pressure 74 mm[Hg] 74 mm[Hg] eCW1 ([facility]) Systolic blood pressure 132 mm[Hg] 132 mm[Hg] e CW1 ([facility]) Body temperature 98.8 [degF] 98.8 [degF] eCW1 ( [facility]) Respiratory rate 16 /min 16 /min eCW1 ([facility]) Heart rate 94 /min 94 /min eCW1 ([facility]) Body mass index (BMI) [Ratio] 27.45 kg/m2 27.45 kg/m2 eCW1 ([facility]) Body height 65 [in_i] 65 [in_i] eCW1 ([facility]) Body weight 165 [lb_av] 165 [lb_av] eCW1 ([facility]) Body surface area Derived from formula 1.79 m2 1.79 m2 [facility] ([facility], ) Body weight 71.669 kg 71.669 kg [facility] ([facility], ) [place] body weight 125 [lb_av] 125 [lb_av] MEDEN T ([facility], ) Body mass index (BMI) [Ratio] 26.3 kg/m2 26.3 k g/m2 [facility] ([facility], ) Body weight 158.00 [lb_av] 158.00 [lb_av] MEDEN T ([facility], ) Body height 65 [in_i] 65 [in_i] [facility] 5'5" Body weight 170 [lb_av] 170 [lb_av] eCW1 ([facility]) Body height 65 [in_i] 65 [in_i] eCW1 ([facility]) Body mass index (BMI) [Ratio] 28.29 kg/m2 28.29 kg/m2 W1 ([facility]) Heart rate 88 /min 88 /min eCW1 ([facility]) Respiratory rate 18 /min 18 /min eCW1 ([facility]) Body temperature 98.4 [degF] 98.4 [degF] eCW1 ( [facility]) Systolic blood pressure 124 mm[Hg] 124 mm[Hg] e CW1 ([facility]) Diastolic blood pressure 78 mm[Hg] 78 mm[Hg] eCW1 ([facility]) Body mass index (BMI) [Ratio] 26.6 kg/m2 26.6 k g/m2 MEDENT ([facility], [facility]) Body height 65 [in_i] 65 [in_i] MEDENT ([facility], [facility]) 5'5" Body weight 160.00 [lb_av] 160.00 [lb_av] MEDEN T ([facility], [facility]) Body temperature 98.5 [degF] 98.5 [degF] MEDENT ([facility], [facility]) Oxygen saturation in Arterial blood by Pulse oximetry 98 % 98 % [facility] ([facility], [facility]) Respiratory rate 12 /min 12 /min [facility] ( [facility], [facility]) Heart rate 76 /min 76 /min MEDENT ([facility], [facility]) Diastolic blood pressure 96 mm[Hg] 96 mm[Hg] MEDENT ([facility], [facility]) Systolic blood pressure 136 mm[Hg] 136 mm[Hg] M EDENT ([facility], [facility]) Body surface area Derived from formula 1.78 m2 1.78 m2 [facility] ([facility]) Body weight 70.308 kg 70.308 kg [facility] ([facility]) [place] body weight 125 [lb_av] 125 [lb_av] MEDEN T ([facility]) Body mass index (BMI) [Ratio] 25.8 kg/m2 25.8 k g/m2 [facility] ([facility]) Body weight 155.00 [lb_av] 155.00 [lb_av] MEDEN T ([facility]) Body height 65 [in_i] 65 [in_i] [facility] ([facility]) 5'5" Patient Treatment Plan of Care Planned Activity Planned Date Details Description Data Source (s) KEM 3-0.02 MG 10/11/2020 12:00:00 AM EST eCW1 ([facility]) KEM 3-0.02 MG 10/11/2020 12:00:00 AM EST eCW1 ([facility]) Amoxicillin 875 MG / Clavulanate 125 MG Oral Tablet 10/09/19 12:00:00 AM EST eCW1 ([facility])
[2020-11-01 06:15] VITALS: BP 128/87
[2020-11-01 06:18] LABS: HEMATOCRIT 30.8 % (36.0-47.0); HEMOGLOBIN 10.6 g/dl (12.0-15.5); MEAN CORPUSCULAR HEMOGLOBIN 32.1 pg (27.0-33.0); MEAN CORPUSCULAR HGB CONC 34.4 g/dl (32.0-36.5); MEAN CORPUSCULAR VOLUME 93.3 fl (80.0-96.0); PLATELET COUNT, AUTOMATED 220 10^3/uL (150-450); WHITE BLOOD COUNT 8.5 10^3/uL (4.0-10.0)
[2020-11-01] MEDS ORDERED: FERR325T3 PO (06:31)
--- NOTE | 2020-11-01 12:42 | ED PDOC ---
Post-Departure Follow-Up 1st trimester us [facility]d [facility] Christiano Florez MD Nov 01, 2020 12:42
== END 2020-11-01 06:49 | disposition home or self-care (01) ==
LOC: M ED 02:12
DX: O34.61 Maternal care for abnormality of vagina, first trimester (principal); O03.9 Complete or unspecified spontaneous abortion without complication; O99.011 Anemia complicating pregnancy, first trimester; O99.331 Smoking (tobacco) complicating pregnancy, first trimester; Z3A.01 Less than 8 weeks gestation of pregnancy

== ENCOUNTER → 2021-06-19 | Outpatient (REF) | payer BC ==
[~2021-06-19] MED LIST: CETI-24 PO; FERR325T3 PO
== END ==
LOC: M SFHCCLAY 11:00
PROVIDERS: ATTEND Physician Assistant
DX: R05.9 Cough, unspecified (principal)